=== PATIENT | female | born 1970 | race Caucasian/White ===

== ENCOUNTER 2016-08-20 10:55 | Emergency (ER) | payer OTHER | END 2016-08-20 11:27 | disposition left against medical advice (07) | LOC: CED 10:55 | DX: T59.891A Toxic effect of other specified gases, fumes and vapors, accidental (unintentional), initial encounter (principal); R51 Headache; Y99.0 Civilian activity done for income or pay; Z53.21 Procedure and treatment not carried out due to patient leaving prior to being seen by health care provider ==